=== PATIENT | female | born 1945 | race Caucasian/White ===

== ENCOUNTER 2020-08-04 19:27 | Emergency (ER) | payer MEDICARE ==
[~2020-08-04] VITALS: Ht 152.4 cm; Wt 65.5 kg
[2020-08-04] MEDS ORDERED: NS 1,000 ML IV ONE (20:15)
[2020-08-04] MEDS ORDERED: FAMOTIDINE IV BAG 20 MG in IV 1 EA IV ONE (20:15)
[2020-08-04 21:30] VITALS: BP 112/56
[2020-08-04] MEDS ORDERED: PRED20TA PO (22:14)
[2020-08-04] MEDS ORDERED: PEPC1TAB5 PO (22:14)
--- NOTE | 2020-08-05 19:25 | ECGEPIP ---
[facility] - ED Test Date: 2020-08-04 Pat Name: MIRIAM GUY Department: Room: - Gender: Female Middleware Engineer: TOÑA : 1945 Requested By: YOUNG Villalpando Order Number: [id number] Reading MD: Fani Aguero Measurements Intervals Luke Rate: 83 P: 49 SD: 167 QRS: -23 QRSD: 86 T: 27 QT: 371 QTc: 436 Interpretive Statements SINUS RHYTHM BORDERLINE LEFT AXIS DEVIATION NONSPECIFIC ST T WAVE CHANGES DELAYED R WAVE PROGRESSION NO PRIOR ECG FOR COMPARISON Electronically Signed on 08-05-2020 19:25:30 EST by Fani Aguero
== END 2020-08-04 22:31 | disposition home or self-care (01) ==
LOC: M ED 19:27
DX: L50.0 Allergic urticaria (principal); Z91.048 Other nonmedicinal substance allergy status; Z91.041 Radiographic dye allergy status

== ENCOUNTER → 2021-02-28 | Outpatient (REF) | payer MEDICARE ==
[~2021-02-28] MED LIST: PEPC1TAB5 PO; PRED20TA PO
[2021-02-28 21:19] LABS: ALBUMIN 4.1 GM/DL (3.2-5.2); PERCENT SATURATION 16.1 % (13.2-45.0)
== END ==
LOC: M LAB REF 20:18
PROVIDERS: ATTEND Orthopaedic Surgery Adult Reconstructive Orthopaedic Surgery
DX: Z01.818 Encounter for other preprocedural examination (principal); M16.12 Unilateral primary osteoarthritis, left hip; M25.552 Pain in left hip

== ENCOUNTER → 2022-04-07 | Outpatient (CLI) | payer MEDICARE ==
[2022-04-07 12:42] LABS: BASO # 0.1 10^3/uL (0.0-0.2); BASO % 0.9 % (0.0-1.0); EOS # 0.3 10^3/uL (0.0-0.5); EOS % 4.5 % (0.0-3.0); HEMATOCRIT 41.6 % (36.0-47.0); HEMOGLOBIN 13.3 g/dl (12.0-15.5); LYMPH # 1.6 10^3/uL (1.5-5.0); LYMPH % 23.4 % (24.0-44.0); MEAN CORPUSCULAR VOLUME 90.8 fl (80.0-96.0); MONO # 0.5 10^3/uL (0.0-0.8); MONO % 6.9 % (2.0-8.0); NEUTROPHILS # 4.4 10^3/uL (1.5-8.5); PLATELET COUNT, AUTOMATED 285 10^3/uL (150-450); RED BLOOD COUNT 4.58 10^6/uL (4.00-5.40); WHITE BLOOD COUNT 6.9 10^3/uL (4.0-10.0)
[2022-04-07 13:15] LABS: PERCENT SATURATION 28.4 % (13.2-45.0)
== END ==
LOC: M WUC 08:54
PROVIDERS: ATTEND Orthopaedic Surgery Adult Reconstructive Orthopaedic Surgery
DX: Z01.818 Encounter for other preprocedural examination (principal); M16.11 Unilateral primary osteoarthritis, right hip; M25.551 Pain in right hip

== ENCOUNTER → 2022-11-24 | Outpatient (CLI) | payer MEDICARE ==
[2022-11-24 16:52] LABS: BASO # 0.1 10^3/uL (0.0-0.2); BASO % 0.8 % (0.0-1.0); EOS # 0.2 10^3/uL (0.0-0.5); EOS % 2.5 % (0.0-3.0); HEMATOCRIT 41.1 % (36.0-47.0); HEMOGLOBIN 12.9 g/dl (12.0-15.5); LYMPH # 1.8 10^3/uL (1.5-5.0); LYMPH % 29.1 % (24.0-44.0); MEAN CORPUSCULAR HEMOGLOBIN 28.1 pg (27.0-33.0); MEAN CORPUSCULAR HGB CONC 31.4 g/dl (32.0-36.5); MEAN CORPUSCULAR VOLUME 89.5 fl (80.0-96.0); MONO # 0.5 10^3/uL (0.0-0.8); MONO % 8.8 % (2.0-8.0); NEUTROPHILS # 3.6 10^3/uL (1.5-8.5); NEUTROPHILS % 58.6 % (36.0-66.0); PLATELET COUNT, AUTOMATED 237 10^3/uL (150-450); RED BLOOD COUNT 4.59 10^6/uL (4.00-5.40); WHITE BLOOD COUNT 6.1 10^3/uL (4.0-10.0)
[2022-11-24 17:26] LABS: ALBUMIN 4.1 G/DL (3.2-5.2); ALKALINE PHOSPHATASE 104 U/L (46-116); ALT/SGPT 13 U/L (7.0-40); AST/SGOT 18 U/L (<34); BILIRUBIN,TOTAL 0.5 MG/DL (0.3-1.2); BLOOD UREA NITROGEN 18 MG/DL (9-23); CALCIUM LEVEL 9.1 MG/DL (8.3-10.6); CARBON DIOXIDE LEVEL 29 MMOL/L (20-31); CHLORIDE LEVEL 104 MMOL/L (98-107); CHOLESTEROL LEVEL 184 MG/DL (<200); CHOLESTEROL RISK RATIO 3.12 (<5); CREATININE FOR GFR 0.77 MG/DL (0.55-1.30); FREE T3 3.9 PG/ML (2.3-4.2); GLOMERULAR FILTRATION RATE > 60.0 (>39); GLUCOSE, FASTING 84 MG/DL (74-106); HDL CHOLESTEROL 58.8 MG/DL (>40); LDL CHOLESTEROL 90.4 MG/DL (<100); NON-HDL-C 125.2 MG/DL; POTASSIUM SERUM 4.3 MMOL/L (3.5-5.1); SODIUM LEVEL 138 MMOL/L (136-145); TOTAL PROTEIN 6.9 G/DL (5.7-8.2); TRIGLYCERIDES LEVEL 174 MG/DL (<150)
[2022-11-24 17:27] LABS: FREE T4 1.04 NG/DL (0.89-1.76); THYROID STIMULATING HORMONE 0.469 uIU/ML (0.55-4.78)
== END ==
LOC: M WUC 11:32
DX: E04.2 Nontoxic multinodular goiter (principal); E78.1 Pure hyperglyceridemia